=== PATIENT | male | born 1940 | race Caucasian/White ===

== ENCOUNTER 2018-03-18 10:20 | Day surgery (SDC) | payer MEDICARE, OTHER ==
[2018-03-17 15:42] LABS: PARTIAL THROMBOPLASTIN TIME 32 SECONDS (22-32); PROTHROMBIN TIME 10.2 SECONDS (9.0-12.0)
[2018-03-17 15:45] LABS: ALANINE AMINOTRANSFERASE 31 U/L (12-78); ALBUMIN/GLOBULIN RATIO 1.1 (1.1-1.5); ALKALINE PHOSPHATASE 68 IU/L (46-116); ANION GAP 9 (8-16); ASPARTATE AMINO TRANSFERASE 21 U/L (10-37); BILIRUBIN,TOTAL 0.4 MG/DL (0.1-1.0); BLOOD UREA NITROGEN 18 MG/DL (7-18); BUN/CREATININE RATIO 18.4 (5.4-32.0); CALCIUM 8.8 MG/DL (8.5-10.1); CHLORIDE 104 MMOL/L (99-107); CREATININE 0.98 MG/DL (0.60-1.10); GLUCOSE 87 MG/DL (70-104); SODIUM 140 MMOL/L (135-145); TOTAL PROTEIN 7.7 G/DL (6.4-8.2); eGFR 74 ML/MIN
[2018-03-17 16:00] LABS: HEMOGLOBIN 14.9 g/dl (14.0-17.9); RED BLOOD COUNT 4.43 X10'6 (4.70-6.10); WHITE BLOOD COUNT 6.3 X10'3 (4.5-11.0)
[2018-03-17 16:01] LABS: BASOPHILS % (AUTO) 0.6 % (0-1); EOSINOPHILS # (AUTO) 0.1 X10'3 (0-0.9); EOSINOPHILS % (AUTO) 2.1 % (0-6); HEMATOCRIT 43.5 % (42.0-52.0); LYMPHOCYTES # (AUTO) 1.6 X10'3 (1.1-4.8); LYMPHOCYTES % (AUTO) 24.8 % (21-51); MEAN CORPUSCULAR HEMOGLOBIN 33.5 PG (27.0-31.0); MEAN CORPUSCULAR HGB CONC 34.2 % (33.0-36.5); MEAN CORPUSCULAR VOLUME 98.1 FL (78-98); MEAN PLATELET VOLUME 9.8 FL (7.4-10.4); MONOCYTES # (AUTO) 0.6 X10'3 (0-0.9); MONOCYTES % (AUTO) 9.1 % (2-12); NEUTROPHILS % (AUTO) 63.4 % (42-75); PLATELET COUNT 181 X10'3 (140-440); RED CELL DISTRIBUTION WIDTH 12.1 % (11.5-14.5)
[2018-03-18] VITALS (10 sets, daily range): BP systolic 121–162; BP diastolic 51–93
[~2018-03-18] VITALS: Ht 182.9 cm; Wt 119.6 kg
[~2018-03-18 10:20] MED LIST: ASCO-407 PO; CALC-1051 PO; FISH12002 PO; LACT1CAP65 PO; LISI40TA4 PO; NIA500ERT PO; [UNRECOGNIZED DRUG - REMARK] PO
[2018-03-18] MEDS ORDERED: LORazepam 0.5 MG tablet PO PRN (10:40)
[2018-03-18] MEDS ORDERED: nitroGLYCERIN 0.4mg SUBLingual tab SL PRN (10:40)
[2018-03-18] MEDS ORDERED: diphenhydrAMINE 25mg capsule PO PRN (10:40)
[2018-03-18] MEDS ORDERED: normal saline 1000ml 1,000 ML IV SCH (10:40)
[2018-03-18] MEDS ORDERED: [UNRECOGNIZED DRUG - CODE] PO (10:41)
[2018-03-18] MEDS ORDERED: iohexol 350 MG/ML 50ML vial IV ONE ×2 (13:24→14:20)
[2018-03-18] MEDS ORDERED: LIDOcaine 1% (10mg/ml)w/preservative injection 20ml MDV ONE (13:24)
[2018-03-18] MEDS ORDERED: midazolam 2 mg/2 ml injection ONE ×2 (13:24→14:03)
[2018-03-18] MEDS ORDERED: iohexol 350MG/ML 100ml bottle IV ONE (13:24)
[2018-03-18] MEDS ORDERED: fentaNYL/PF 50MCG/1 ML 2ML syringe ONE (13:24)
== END 2018-03-18 20:05 | disposition home or self-care (01) ==
LOC: SSTAY O 10:20
PROVIDERS: ATTEND Internal Medicine Cardiovascular Disease
DX: I25.10 Atherosclerotic heart disease of native coronary artery without angina pectoris (principal); I44.1 Atrioventricular block, second degree; I10 Essential (primary) hypertension; E78.5 Hyperlipidemia, unspecified; N40.0 Benign prostatic hyperplasia without lower urinary tract symptoms; Z79.2 Long term (current) use of antibiotics; Z96.652 Presence of left artificial knee joint; Z79.899 Other long term (current) drug therapy; Z98.890 Other specified postprocedural states; Z81.2 Family history of tobacco abuse and dependence; Z82.49 Family history of ischemic heart disease and other diseases of the circulatory system
CPT/HCPCS: 36415; 71046; 80053; 85025; 85610; 85730; 93458; 99152; 99153; A6257; C1760; J1644; J2001; J2250; J3010; J7030; Q0163; Q9967; A4620; C1769

== ENCOUNTER 2018-03-26 05:01 | Inpatient (IN) | payer MEDICARE, OTHER ==
[2018-03-11 15:10] LABS: BASOPHILS % (AUTO) 0.3 % (0-1); EOSINOPHILS # (AUTO) 0.2 X10'3 (0-0.9); EOSINOPHILS % (AUTO) 2.6 % (0-6); LYMPHOCYTES # (AUTO) 1.3 X10'3 (1.1-4.8); LYMPHOCYTES % (AUTO) 20.5 % (21-51); MEAN CORPUSCULAR HEMOGLOBIN 33.1 PG (27.0-31.0); MEAN CORPUSCULAR VOLUME 100.3 FL (78-98); MONOCYTES # (AUTO) 0.7 X10'3 (0-0.9); MONOCYTES % (AUTO) 10.3 % (2-12); NEUTROPHILS # (AUTO) 4.3 X10'3 (1.8-7.7); NEUTROPHILS % (AUTO) 66.3 % (42-75); PRE OP HEMATOCRIT 43.1 % (42.0-52.0); PRE OP HEMOGLOBIN 14.2 g/dL (14.0-17.9); PRE OP PLATELET COUNT 171 X10'3 (140-440); RED CELL DISTRIBUTION WIDTH 12.9 % (11.5-14.5)
[2018-03-11 15:21] LABS: PRE OP PROTIME 10.1 SECONDS (9.0-12.0)
[2018-03-11 15:25] LABS: ALBUMIN 3.7 G/DL (3.4-5.0); ALKALINE PHOSPHATASE 75 IU/L (46-116); BLOOD UREA NITROGEN 21 MG/DL (7-18); BUN/CREATININE RATIO 21.2 (5.4-32.0); CHLORIDE 104 MMOL/L (99-107); CREATININE 0.99 MG/DL (0.60-1.10); PRE OP ALT 33 U/L (30-65); PRE OP ANION GAP 9 (8-16); PRE OP AST 22 U/L (10-37); PRE OP BILIRUB, TOTAL 0.3 MG/DL (0.0-1.0); PRE OP GLUCOSE 108 MG/DL (70-104); PRE OP POTASSIUM 4.3 MMOL/L (3.4-5.1); PRE OP SODIUM 140 MMOL/L (135-145); TOTAL CARBON DIOXIDE 27.2 MMOL/L (24-32); TOTAL PROTEIN 7.4 G/DL (6.4-8.2); eGFR 73 ML/MIN
[~2018-03-26] VITALS: Ht 182.9 cm; Wt 114.9 kg
[2018-03-26] VITALS (21 sets, daily range): BP systolic 130–181; BP diastolic 65–98
[~2018-03-26 05:01] MED LIST changes: -ASCO-407 PO; -CALC-1051 PO; -FISH12002 PO; -LACT1CAP65 PO; -NIA500ERT PO; +[UNRECOGNIZED DRUG - CODE] PO; -[UNRECOGNIZED DRUG - REMARK] PO; +ringers solution, lacted 1,000 ML IV SCH
[2018-03-26] MEDS ORDERED: cefazolin/dext.iso 2gm/50ml 50 ML IV ONE (05:30)
[2018-03-26] MEDS ORDERED: scopolamine 1.5mg patch.TD72 TD ONE (05:30)
[2018-03-26] MEDS ORDERED: famotidine 20mg tablet PO ONE (05:30)
[2018-03-26] MEDS ORDERED: tranexamic acid inj. 1,000 MG in normal saline 100ml IV soln 90 ML IV ONE (05:30)
[2018-03-26] MEDS ORDERED: vancomycin inj 1,500 MG in normal saline 300ml IV soln IV ONE (05:30)
[2018-03-26] MEDS ORDERED: LIDOcaine 1% (10mg/ml) 2ml vial ONE (05:54)
[2018-03-26] MEDS ORDERED: tetracaine 1% (10mg/ml) pres. free inj. ONE (07:22)
[2018-03-26] MEDS ORDERED: cloNIDine hcl/PF 100mcg/ml inj ONE (07:22)
[2018-03-26] MEDS ORDERED: BUPIVAcaine/PF 7.5mg/ml (0.75%) 10ml vial ONE (07:22)
[2018-03-26] MEDS ORDERED: morphine /PF 1mg/ml 10ml inj. ONE (07:25)
[2018-03-26] MEDS ORDERED: MIDAZolam 5mg/5ml vial ONE (07:26)
[2018-03-26] MEDS ORDERED: fentaNYL/PF 50MCG/1 ML 2ML syringe ONE (07:26)
[2018-03-26] MEDS ORDERED: hydrALAZINE 20mg/ml inj. IV ONE (07:27)
[2018-03-26] MEDS ORDERED: sevoflurane 250ml liquid IH ONE ×2 (07:27)
[2018-03-26] MEDS ORDERED: diphenhydrAMINE 50 mg/ml inj ONE ×2 (07:27→08:11)
[2018-03-26] MEDS ORDERED: neostigmine methylsulfate 1 MG/ML 10ml vial ONE (07:27)
[2018-03-26] MEDS ORDERED: ondansetron/PF 4mg/2ml inj ONE (07:27)
[2018-03-26] MEDS ORDERED: DOBUTamine 2000 MCG/250ML BAG IV SCH (07:40)
[2018-03-26] MEDS ORDERED: morphine 2 MG/ML inj. syringe ONE (08:11)
[2018-03-26] MEDS ORDERED: tranexamic acid 100mg/ml inj. ONE (08:11)
[2018-03-26] MEDS ORDERED: glycopyrrolate 0.2mg/ml inj ONE ×2 (08:11→09:56)
[2018-03-26] MEDS ORDERED: ROPIVAcaine 0.5% (5mg/ml) 30ml vial ONE (08:47)
[2018-03-26] MEDS ORDERED: naloxone 2mg/2ml inj 2 MG in normal saline 500ml IV soln 500 ML IV PRN (09:42)
[2018-03-26] MEDS ORDERED: ringers solution, lacted 1,000 ML IV SCH (09:42)
[2018-03-26] MEDS ORDERED: morphine 4 MG/ML inj SYRINge IV PRN (09:45)
[2018-03-26] MEDS ORDERED: ondansetron/PF 4mg/2ml inj IV PRN ×2 (09:45→10:45)
[2018-03-26] MEDS ORDERED: diphenhydrAMINE 50 mg/ml inj IV PRN (09:45)
[2018-03-26] MEDS ORDERED: LIDOcaine 1%/PF 5ML 10 MG/ML VIAL ONE (09:54)
[2018-03-26] MEDS ORDERED: propofol inj 20 ML IV ONE (09:54)
[2018-03-26] MEDS ORDERED: dexamethasone sod phosphate 4mg/ml inj. ONE (09:54)
[2018-03-26] MEDS ORDERED: atropine 0.4 mg/ml 20ml vial ONE (09:56)
[2018-03-26] MEDS ORDERED: HYDROmorphone 1 mg/ml syringe IV PRN (10:45)
[2018-03-26] MEDS ORDERED: bisacodyl 10mg suppository rectal RC PRN (10:45)
[2018-03-26] MEDS ORDERED: magnesium hydroxide 30ml (MOM) UD suspension PO PRN (10:45)
[2018-03-26] MEDS ORDERED: HYDROcodone/acetaminophen 10/325mg tab PO PRN (10:45)
[2018-03-26] MEDS ORDERED: acetaminophen 325mg tablet PO PRN (10:45)
[2018-03-26] MEDS ORDERED: diphenhydrAMINE 25mg capsule PO PRN ×2 (10:45)
[2018-03-26] MEDS: ceFAZolin 1GM/D5W- ADD-VANTAGE 50 ML IV SCH ×2 (16:12→23:26)
[2018-03-26] MEDS: potassium Cl 20mEq in NS 1,000 ML IV SCH (16:12)
[2018-03-26] MEDS ORDERED: aspirin 325mg tablet PO SCH (17:30)
[2018-03-26] MEDS ORDERED: vancomycin/NS 1 GM ADD-VANTAGE 250 ML IV SCH (20:00)
[2018-03-26] MEDS: sennosides 8.6mg tablet PO SCH (21:00)
[2018-03-27 01:57] VITALS: BP 117/56
[2018-03-27 06:00] VITALS: BP 127/70
[2018-03-27 06:22] LABS: BASOPHILS % (AUTO) 0.1 % (0-1); EOSINOPHILS % (AUTO) 0 % (0-6); HEMATOCRIT 34.4 % (42.0-52.0); HEMOGLOBIN 11.5 g/dl (14.0-17.9); LYMPHOCYTES # (AUTO) 0.7 X10'3 (1.1-4.8); LYMPHOCYTES % (AUTO) 7.3 % (21-51); MEAN CORPUSCULAR HEMOGLOBIN 33.3 PG (27.0-31.0); MEAN CORPUSCULAR HGB CONC 33.4 % (33.0-36.5); MEAN CORPUSCULAR VOLUME 99.6 FL (78-98); MONOCYTES # (AUTO) 1.3 X10'3 (0-0.9); MONOCYTES % (AUTO) 14.1 % (2-12); NEUTROPHILS # (AUTO) 7.3 X10'3 (1.8-7.7); NEUTROPHILS % (AUTO) 78.5 % (42-75); PLATELET COUNT 147 X10'3 (140-440); RED BLOOD COUNT 3.45 X10'6 (4.70-6.10); RED CELL DISTRIBUTION WIDTH 13.1 % (11.5-14.5); WHITE BLOOD COUNT 9.4 X10'3 (4.5-11.0)
[2018-03-27 07:06] LABS: ALANINE AMINOTRANSFERASE 23 U/L (12-78); ALBUMIN 2.9 G/DL (3.4-5.0); ALBUMIN/GLOBULIN RATIO 0.9 (1.1-1.5); ALKALINE PHOSPHATASE 52 IU/L (46-116); ANION GAP 8 (8-16); ASPARTATE AMINO TRANSFERASE 18 U/L (10-37); BILIRUBIN,TOTAL 0.6 MG/DL (0.1-1.0); BLOOD UREA NITROGEN 20 MG/DL (7-18); BUN/CREATININE RATIO 16.5 (5.4-32.0); CALCIUM 7.9 MG/DL (8.5-10.1); CHLORIDE 104 MMOL/L (99-107); CREATININE 1.21 MG/DL (0.60-1.10); GLUCOSE 129 MG/DL (70-104); POTASSIUM 4.1 MMOL/L (3.5-5.1); SODIUM 138 MMOL/L (135-145); TOTAL CARBON DIOXIDE 26.4 MMOL/L (24-32); TOTAL PROTEIN 6.1 G/DL (6.4-8.2); eGFR 58 ML/MIN
[2018-03-27] MEDS: aspirin 81mg tab.chew PO SCH ×2 (07:30→17:35)
[2018-03-27] MEDS: lisinopril 20mg tablet PO SCH (08:00)
[2018-03-27] MEDS: potassium Cl 20mEq in NS 1,000 ML IV SCH ×3 (08:37→19:39)
[2018-03-27 10:00] VITALS: BP 133/54
[2018-03-27] MEDS: HYDROcodone/acetaminophen 10/325mg tab PO PRN (12:03)
[2018-03-27 14:00] VITALS: BP 144/58
[2018-03-27 18:00] VITALS: BP 153/66
[2018-03-27] MEDS: sennosides 8.6mg tablet PO SCH (20:13)
[2018-03-27 22:00] VITALS: BP 145/73
[2018-03-27] MEDS: ondansetron/PF 4mg/2ml inj IV PRN (22:53)
[2018-03-28 06:00] VITALS: BP 148/82
[2018-03-28 06:32] LABS: BASOPHILS % (AUTO) 0.2 % (0-1); EOSINOPHILS # (AUTO) 0.1 X10'3 (0-0.9); EOSINOPHILS % (AUTO) 0.9 % (0-6); HEMATOCRIT 31.5 % (42.0-52.0); HEMOGLOBIN 10.7 g/dl (14.0-17.9); LYMPHOCYTES % (AUTO) 9.9 % (21-51); MEAN CORPUSCULAR HEMOGLOBIN 33.6 PG (27.0-31.0); MEAN CORPUSCULAR HGB CONC 33.8 % (33.0-36.5); MEAN CORPUSCULAR VOLUME 99.3 FL (78-98); MEAN PLATELET VOLUME 10.3 FL (7.4-10.4); MONOCYTES # (AUTO) 1.3 X10'3 (0-0.9); NEUTROPHILS # (AUTO) 8.1 X10'3 (1.8-7.7); PLATELET COUNT 136 X10'3 (140-440); RED BLOOD COUNT 3.17 X10'6 (4.70-6.10); RED CELL DISTRIBUTION WIDTH 13.1 % (11.5-14.5); WHITE BLOOD COUNT 10.6 X10'3 (4.5-11.0)
[2018-03-28 06:36] LABS: ALANINE AMINOTRANSFERASE 19 U/L (12-78); ALBUMIN 2.7 G/DL (3.4-5.0); ALBUMIN/GLOBULIN RATIO 0.8 (1.1-1.5); ALKALINE PHOSPHATASE 49 IU/L (46-116); ANION GAP 7 (8-16); ASPARTATE AMINO TRANSFERASE 19 U/L (10-37); BILIRUBIN,TOTAL 0.6 MG/DL (0.1-1.0); BLOOD UREA NITROGEN 14 MG/DL (7-18); BUN/CREATININE RATIO 12.7 (5.4-32.0); CALCIUM 7.5 MG/DL (8.5-10.1); CHLORIDE 102 MMOL/L (99-107); GLUCOSE 140 MG/DL (70-104); POTASSIUM 3.9 MMOL/L (3.5-5.1); SODIUM 137 MMOL/L (135-145); TOTAL CARBON DIOXIDE 28.2 MMOL/L (24-32); TOTAL PROTEIN 6.3 G/DL (6.4-8.2); eGFR 65 ML/MIN
[2018-03-28] MEDS: aspirin 81mg tab.chew PO SCH ×2 (08:12→17:30)
[2018-03-28] MEDS: lisinopril 20mg tablet PO SCH (08:14)
[2018-03-28 10:00] VITALS: BP 127/73
[2018-03-28] MEDS: ondansetron/PF 4mg/2ml inj IV PRN (17:49)
[2018-03-28 18:00] VITALS: BP 139/72
[2018-03-28] MEDS: sennosides 8.6mg tablet PO SCH (20:05)
[2018-03-28] MEDS ORDERED: proCHLORperazine 10 MG/2 ml inj IV PRN (20:25)
[2018-03-28] MEDS ORDERED: scopolamine 1.5mg patch.TD72 TD ONE (20:35)
[2018-03-28 22:00] VITALS: BP 122/58
[2018-03-29 06:00] VITALS: BP 142/70
[2018-03-29 07:14] LABS: BASOPHILS % (AUTO) 0.4 % (0-1); EOSINOPHILS # (AUTO) 0.1 X10'3 (0-0.9); EOSINOPHILS % (AUTO) 1.1 % (0-6); HEMATOCRIT 31.2 % (42.0-52.0); HEMOGLOBIN 10.5 g/dl (14.0-17.9); LYMPHOCYTES % (AUTO) 9.8 % (21-51); MEAN CORPUSCULAR HEMOGLOBIN 33.7 PG (27.0-31.0); MEAN CORPUSCULAR HGB CONC 33.7 % (33.0-36.5); MEAN CORPUSCULAR VOLUME 99.8 FL (78-98); MEAN PLATELET VOLUME 9.5 FL (7.4-10.4); MONOCYTES # (AUTO) 0.9 X10'3 (0-0.9); MONOCYTES % (AUTO) 9.1 % (2-12); NEUTROPHILS % (AUTO) 79.6 % (42-75); PLATELET COUNT 143 X10'3 (140-440); RED BLOOD COUNT 3.13 X10'6 (4.70-6.10); RED CELL DISTRIBUTION WIDTH 13.2 % (11.5-14.5)
[2018-03-29 07:35] LABS: ALANINE AMINOTRANSFERASE 23 U/L (12-78); ALBUMIN 2.4 G/DL (3.4-5.0); ALBUMIN/GLOBULIN RATIO 0.6 (1.1-1.5); ALKALINE PHOSPHATASE 57 IU/L (46-116); ANION GAP 6 (8-16); ASPARTATE AMINO TRANSFERASE 22 U/L (10-37); BILIRUBIN,TOTAL 0.5 MG/DL (0.1-1.0); BLOOD UREA NITROGEN 17 MG/DL (7-18); BUN/CREATININE RATIO 14.9 (5.4-32.0); CALCIUM 7.7 MG/DL (8.5-10.1); CHLORIDE 103 MMOL/L (99-107); CREATININE 1.14 MG/DL (0.60-1.10); GLUCOSE 121 MG/DL (70-104); POTASSIUM 3.8 MMOL/L (3.5-5.1); SODIUM 137 MMOL/L (135-145); TOTAL CARBON DIOXIDE 27.8 MMOL/L (24-32); TOTAL PROTEIN 6.3 G/DL (6.4-8.2); eGFR 62 ML/MIN
[2018-03-29] MEDS: aspirin 81mg tab.chew PO SCH (08:49)
[2018-03-29] MEDS: lisinopril 20mg tablet PO SCH (08:50)
[2018-03-29 10:00] VITALS: BP 124/57
[2018-03-29] MEDS: HYDROcodone/acetaminophen 10/325mg tab PO PRN ×2 (10:49→11:36)
== END 2018-03-29 13:45 | DRG 470 ==
LOC: PAS IN 05:01 → EDSTATUS 07:30 → PAS IN 11:15 → ORTHO 4S 12:24
PROVIDERS: ADMIT Orthopaedic Surgery; ATTEND Orthopaedic Surgery
PROC: 3E0T3BZ Introduction of Anesthetic Agent into Peripheral Nerves and Plexi, Percutaneous Approach (ICD-10-PCS; 2018-03-26)
PROC: 0SRC0J9 Replacement of Right Knee Joint with Synthetic Substitute, Cemented, Open Approach (ICD-10-PCS; principal; 2018-03-26 07:27)
DX: M17.11 Unilateral primary osteoarthritis, right knee (principal); D62 Acute posthemorrhagic anemia; I25.10 Atherosclerotic heart disease of native coronary artery without angina pectoris; I44.1 Atrioventricular block, second degree; I10 Essential (primary) hypertension; E66.9 Obesity, unspecified; Z79.899 Other long term (current) drug therapy; Z68.34 Body mass index [BMI] 34.0-34.9, adult
CPT/HCPCS: 36415; 80053; 85025; 85610; 85730; 86885; 86900; 86901; 86920; 87070; 93005; 97110; 97116; 97530; A6454; A7000; C1713; C1758; C1776; G0378; J0360; J0461; J0690; J0735; J0780; J1100; J1200; J1250; J2001; J2250; J2270; J2274; J2405; J2704; J2710; J2795; J3010; J3370; J3490; J7030; J7120